=== PATIENT | male | born 1955 | race Caucasian/White ===

== ENCOUNTER 2017-06-18 10:00 | Inpatient (IN) | payer OTHER ==
[~2017-06-18] VITALS: Ht 177.8 cm; Wt 72.1 kg
--- NOTE | ~2017-06-18 | PROC ---
[address] [address] PROCEDURE REPORT Name: ALLISON FENTON Room: [address] IN .R.#: [id number] Admission: 06/18/17 Attend Phys: Sky Grajeda MD Discharge: Date of : 51 Report #: [id number] THIS REPORT FOR: //name// For GI report, please see the Provation report in Perceptive 7 content. By: [id number] Records Staff [facility] /PORFIRIO
[~2017-06-18 10:00] MED LIST: ALEVE220 MG PO; ASPIR 8181 MG PO; CINNAMON500 MG PO; GLUCOPHAGE1000 MG PO; HYDROCHLOROTHIA25 M2 PO; HYDROCODON-ACE1 EAC5 PO; HYZAAR 100-251 EACH PO; JANUVIA 50 MG T50 M1 PO; LEVOTHYROXIN0.025 MG PO; LIPITOR 20 MG T20 M1 PO; LOPRESSOR50 PO; LOSARTAN POTASS50 MG PO; MAGOX 400400 MG PO; METFORMIN HCL500 MG PO; PLAVIX 75 MG TA75 M1 PO; PROTONIX40 M1 PO; UNICOMPLEX M TA1 TA1 PO; [UNRECOGNIZED DRUG - OTHER] PO
[2017-06-18 10:05] VITALS: BP 102/63
[2017-06-18] MEDS ORDERED: VITAMIN D3400 UNIT PO (10:18)
[2017-06-18] MEDS ORDERED: HYDROCHLOROTH12.5 M1 PO (10:18)
[2017-06-18] MEDS ORDERED: ALEVE220 MG PO (10:18)
[2017-06-18] MEDS ORDERED: NITROGLYCERIN0.4 MG SUBLING (10:18)
[2017-06-18] MEDS ORDERED: GLYBURIDE 1.21.25 M1 PO (10:19)
[2017-06-18] MEDS ORDERED: TRULICITY0.75 MG/0. PO (10:19)
[2017-06-18] MEDS ORDERED: JARDIANCE10 MG PO (10:19)
[2017-06-18 10:42] LABS: ABSOLUTE BASOPHILS 0.1 thou/uL (0.0-0.2); ABSOLUTE EOSINOPHILS 0.1 thou/uL (0.0-0.7); ABSOLUTE LYMPHOCYTES 0.9 thou/uL (0.8-5.3); ABSOLUTE MONOCYTES 0.8 thou/uL (0.0-1.2); BASOPHILS 1.3 %; EOSINOPHILS 1.1 %; HEMATOCRIT 39.6 % (42.0-52.0); HEMOGLOBIN 13.3 gm/dL (14.0-18.0); LYMPHOCYTES 11.8 %; MCH 31.4 pg (26.0-34.0); MCHC 33.5 g/dL (28.0-37.0); MCV 93.8 fL (80.0-100.0); MONOCYTES 10.1 %; MPV 9.3 fl. (7.2-11.1); NUCLEATED RBCS 0 /100WBC; PLATELET COUNT* 324 thou/uL (150-400); POLYS 75.7 %; RBC 4.23 mil/uL (4.50-6.00); RDW-CV 15.1 % (10.5-14.5); WBC 7.9 thou/uL (4.0-11.0)
[2017-06-18 10:50] LABS: URINE BLOOD NEGATIVE (Negative); URINE CLARITY SL CLOUDY; URINE COLOR DARK YELLOW; URINE GLUCOSE-RANDOM 3+ (Negative); URINE KETONES 1+ (Negative); URINE LEUKOCYTES-REFLEX NEGATIVE (Negative); URINE NITRITE-REFLEX NEGATIVE (Negative); URINE PROTEIN NEGATIVE (Negative); URINE UROBILINOGEN 0.2 E.U./dl (0.2-1.0)
[2017-06-18 10:51] LABS: URINE BILIRUBIN 2+ (Negative)
[2017-06-18 10:51] LABS: APTT 23.5 Seconds (25.0-31.3); PROTIME 9.8 Seconds (9.20-11.50)
[2017-06-18 10:52] LABS: ICTOTEST (BILI CONFIRMATORY) Positive (Negative)
[2017-06-18 10:53] LABS: ANION GAP 8 mmol/L (7-16); BUN 26 mg/dL (7-18); CALCIUM 8.7 mg/dL (8.5-10.1); CHLORIDE 90 mmol/L (98-107); CO2 29 mmol/L (21-32); CREATININE 1.6 mg/dL (0.6-1.3); GLUCOSE 287 mg/dL (70-99); POTASSIUM 4.6 mmol/L (3.5-5.1); SODIUM 127 mmol/L (136-145)
[2017-06-18 11:05] LABS: ALBUMIN 2.9 g/dL (3.4-5.0); ALKALINE PHOSPHATASE 1841 U/L (46-116); LIPASE 315 U/L (73-393); SGOT 253 U/L (15-37); SGPT 289 U/L (30-65); TOTAL BILIRUBIN 3.4 mg/dL (<0.1-1.0); TOTAL PROTEIN 7.2 g/dL (6.4-8.2); TROPONIN-I LEVEL <0.06 ng/mL (<0.06)
[2017-06-18 13:39] LABS: DIRECT BILIRUBIN 2.8 mg/dL (<0.1-0.3); TOTAL BILIRUBIN 3.4 mg/dL (<0.1-1.0)
[2017-06-18 14:44] VITALS: BP 102/69
--- NOTE | 2017-06-18 15:37 | EKG ---
[place] [address] ELECTROCARDIOGRAM REPORT Name: ALLISON FENTON Room: [address] ADM IN [facility].#: [id number] Admission: 06/18/17 Attend Phys: Sky Grajeda MD Discharge: Date of : 51 Report #: [id number] THIS REPORT FOR: //name// [facility] ED Test Date: 2017-06-18 Test Time: 10:14:22 Pat Name: ALLISON FENTON Department: Room: [facility] Gender: Slip Cover Maker: Kassandra TRIVEDI : 1955 Requested By: Neha Graham Order Number: [id number] MD: Chapito Erickson Measurements Intervals [place] Rate: 73 P: 65 TX: 142 QRS: -34 QRSD: 124 T: 71 QT: 444 QTc: 490 Interpretive Statements Sinus rhythm incomplete RBBB low voltage Baseline wander in lead(s) V1 Compared to ECG 11/03/2016 09:40:00 no change Electronically Signed On 06-18-2017 15:36:59 CIRCULAR CLERK by Chapito Erickson [email or web address] <ELECTRONICALLY SIGNED> By: Chapito Erickson MD, FAC 06/18/17 1536 1014 1014 Chapito Erickson MD, [facility] /EPI
[2017-06-18 20:00] VITALS: BP 111/80
[2017-06-18 23:07] LABS: HEPATITIS B SURFACE AG Negative (Negative)
[2017-06-19 04:46] LABS: HEMATOCRIT 40.6 % (42.0-52.0); HEMOGLOBIN 13.8 gm/dL (14.0-18.0); MCH 31.7 pg (26.0-34.0); MCV 93.3 fL (80.0-100.0); MPV 10.2 fl. (7.2-11.1); RBC 4.35 mil/uL (4.50-6.00); RDW-CV 15.6 % (10.5-14.5); WBC 8.3 thou/uL (4.0-11.0)
[2017-06-19 05:07] LABS: ALBUMIN 2.8 g/dL (3.4-5.0); CALCIUM 8.4 mg/dL (8.5-10.1); CREATININE 1.1 mg/dL (0.6-1.3); MAGNESIUM 2.3 mg/dL (1.8-2.4); TOTAL BILIRUBIN 3.6 mg/dL (<0.1-1.0); TOTAL PROTEIN 6.8 g/dL (6.4-8.2)
[2017-06-19 07:45] VITALS: BP 100/64
[2017-06-19 16:00] VITALS: BP 114/77
[2017-06-19 23:31] VITALS: BP 103/67
[2017-06-20 03:52] LABS: HEMATOCRIT 38.8 % (42.0-52.0); HEMOGLOBIN 13.1 gm/dL (14.0-18.0); MCH 31.4 pg (26.0-34.0); MCHC 33.7 g/dL (28.0-37.0); MCV 93.3 fL (80.0-100.0); RBC 4.16 mil/uL (4.50-6.00); RDW-CV 15.3 % (10.5-14.5); WBC 7.5 thou/uL (4.0-11.0)
[2017-06-20 04:28] LABS: ALBUMIN 2.6 g/dL (3.4-5.0); CALCIUM 8.2 mg/dL (8.5-10.1); CREATININE 1.1 mg/dL (0.6-1.3); MAGNESIUM 2.1 mg/dL (1.8-2.4); POTASSIUM 4.7 mmol/L (3.5-5.1); TOTAL BILIRUBIN 4.2 mg/dL (<0.1-1.0); TOTAL PROTEIN 6.5 g/dL (6.4-8.2)
[2017-06-20 07:50] VITALS: BP 90/69
[2017-06-20 16:43] VITALS: BP 107/67
[2017-06-21 03:45] LABS: HEMATOCRIT 41.6 % (42.0-52.0); HEMOGLOBIN 13.9 gm/dL (14.0-18.0); MCH 31.3 pg (26.0-34.0); MCHC 33.4 g/dL (28.0-37.0); MCV 93.8 fL (80.0-100.0); MPV 9.8 fl. (7.2-11.1); RBC 4.44 mil/uL (4.50-6.00); WBC 7.8 thou/uL (4.0-11.0)
[2017-06-21 04:11] LABS: ALBUMIN 2.6 g/dL (3.4-5.0); CALCIUM 8.5 mg/dL (8.5-10.1); CREATININE 1.1 mg/dL (0.6-1.3); POTASSIUM 4.7 mmol/L (3.5-5.1); TOTAL BILIRUBIN 5.3 mg/dL (<0.1-1.0); TOTAL PROTEIN 6.9 g/dL (6.4-8.2)
[2017-06-21 08:30] VITALS: BP 111/59
[2017-06-21 16:00] VITALS: BP 108/73
[2017-06-21 19:40] VITALS: BP 117/70
[2017-06-22 04:54] LABS: ALBUMIN 2.6 g/dL (3.4-5.0); CALCIUM 8.5 mg/dL (8.5-10.1); CREATININE 1.1 mg/dL (0.6-1.3); MAGNESIUM 1.7 mg/dL (1.8-2.4); POTASSIUM 4.5 mmol/L (3.5-5.1); TOTAL BILIRUBIN 5.7 mg/dL (<0.1-1.0); TOTAL PROTEIN 6.7 g/dL (6.4-8.2)
[2017-06-22 04:56] LABS: HEMATOCRIT 39.1 % (42.0-52.0); HEMOGLOBIN 13.2 gm/dL (14.0-18.0); MCH 31.7 pg (26.0-34.0); MCHC 33.8 g/dL (28.0-37.0); MCV 93.8 fL (80.0-100.0); MPV 10.3 fl. (7.2-11.1); RBC 4.17 mil/uL (4.50-6.00); RDW-CV 15.4 % (10.5-14.5); WBC 6.6 thou/uL (4.0-11.0)
[2017-06-22 07:45] VITALS: BP 108/90
[2017-06-22] MEDS ORDERED: LACTULOSE20 GM/30 M PO (15:18)
[2017-06-22 15:34] VITALS: BP 108/90
[2017-06-22 16:00] VITALS: BP 109/68
[2017-06-22 20:45] VITALS: BP 93/66
[2017-06-23 04:24] LABS: HEMATOCRIT 37.9 % (42.0-52.0); HEMOGLOBIN 13.1 gm/dL (14.0-18.0); MCH 32.3 pg (26.0-34.0); MCHC 34.7 g/dL (28.0-37.0); RBC 4.07 mil/uL (4.50-6.00); RDW-CV 15.4 % (10.5-14.5); WBC 6.6 thou/uL (4.0-11.0)
[2017-06-23 04:32] LABS: INR 1.1; PROTIME 10.4 Seconds (9.20-11.50)
[2017-06-23 04:46] LABS: ALBUMIN 2.7 g/dL (3.4-5.0); CALCIUM 8.8 mg/dL (8.5-10.1); POTASSIUM 5.4 mmol/L (3.5-5.1); TOTAL BILIRUBIN 6.7 mg/dL (<0.1-1.0); TOTAL PROTEIN 6.8 g/dL (6.4-8.2)
[2017-06-23 07:40] VITALS: BP 88/59
[2017-06-23 12:10] LABS: HCV QUANT BY PCR HCV Not Detected IU/mL (())
[2017-06-23 14:45] VITALS: BP 92/61
[2017-06-24 05:17] LABS: HEMATOCRIT 36.2 % (42.0-52.0); HEMOGLOBIN 12.4 gm/dL (14.0-18.0); MCH 31.8 pg (26.0-34.0); MCHC 34.1 g/dL (28.0-37.0); MPV 10.5 fl. (7.2-11.1); NUCLEATED RBCS 0 /100WBC; PLATELET COUNT* 254 thou/uL (150-400); RBC 3.89 mil/uL (4.50-6.00); RDW-CV 15.5 % (10.5-14.5); WBC 8.5 thou/uL (4.0-11.0)
[2017-06-24 05:33] LABS: ALBUMIN 2.6 g/dL (3.4-5.0); CALCIUM 8.2 mg/dL (8.5-10.1); POTASSIUM 4.9 mmol/L (3.5-5.1); TOTAL BILIRUBIN 7.1 mg/dL (<0.1-1.0); TOTAL PROTEIN 6.3 g/dL (6.4-8.2)
[2017-06-24 05:49] LABS: ABSOLUTE LYMPHOCYTES 0.9 thou/uL (0.8-5.3); ABSOLUTE MONOCYTES 0.4 thou/uL (0.0-1.2); ABSOLUTE NEUTROPHILS 7.2 thou/uL (1.6-8.1); ANISOCYTOSIS 1+; PLATELET ESTIMATE ADEQUATE; POIKILOCYTOSIS 1+
[2017-06-24 16:00] VITALS: BP 98/59
[2017-06-24 19:55] VITALS: BP 92/56
[2017-06-25 03:44] LABS: HEMATOCRIT 34.8 % (42.0-52.0); HEMOGLOBIN 11.7 gm/dL (14.0-18.0); MCH 31.5 pg (26.0-34.0); MCHC 33.7 g/dL (28.0-37.0); MCV 93.5 fL (80.0-100.0); RBC 3.72 mil/uL (4.50-6.00); RDW-CV 15.6 % (10.5-14.5); WBC 11.4 thou/uL (4.0-11.0)
[2017-06-25 04:06] LABS: ALBUMIN 2.4 g/dL (3.4-5.0); CALCIUM 8.2 mg/dL (8.5-10.1); CREATININE 1.1 mg/dL (0.6-1.3); POTASSIUM 4.9 mmol/L (3.5-5.1); TOTAL BILIRUBIN 7.6 mg/dL (<0.1-1.0)
[2017-06-25 08:30] VITALS: BP 110/58
--- NOTE | 2017-06-25 15:00 | CNG ---
[address] [address] CYTO-NONGYN REPORT PROCEDURE Name: ELICEOALLISON D Room: [address] IN .R.#: [id number] Admission: 06/18/17 Date of : 51 Discharge: Report #: [id number] Path Case #: [id number] CYTOPATHOLOGY REPORT COLLECTION DATE: 06/23/2017 RECEIVED DATE: 06/24/2017 SUBMITTING PHYS: Dr. Genesis Nichols OTHER PHYS: Dr Jeffery Grajeda CLINICAL HISTORY: Elevated liver enzymes, acute viral hepatitis, unspecified severe protein calorie malnutrition SPECIMEN(S) RECEIVED: A.Brushing, Biliary duct common bile duct strictures B.Brushing, Biliary duct common bile duct strictures * * * * * * * * * * * * FINAL DIAGNOSIS: A. Brushing, biliary duct common bile duct strictures: - No malignant cells identified. - Few groups of benign-appearing ductal epithelial cells. (see comment) B. Brushing, biliary duct common bile duct strictures: - Few groups of atypical ductal epithelial cells in background of benign-appearing ductal epithelial cells. (see comment) COMMENT: Specimens A and B reviewed with Dr. Louis Rodriguez (cytopathologist) who agrees with the diagnoses. (GLORY:; 06/25/2017) PATHOLOGIST: Leonard Hassan M.D. REPORT ELECTRONICALLY SIGNED BY: Leonard Hassan M.D. DATE/TIME: 06/25/2017 14:58 * * * * * * * * * * * * GROSS PATHOLOGY: A. Brushing, Biliary duct common bile duct strictures: The specimen is labeled "Allison Fenton" and consists of a brush tip in formalin. One formalin fixed cell block was prepared. B. Brushing, Biliary duct common bile duct strictures: The specimen is labeled "Allison Fenton" and consists of a brush tip in formalin. One formalin fixed cell block was prepared. (mm 3.) PLASTICS PRODUCTION MACHINE OPERATOR(S): BRIJESH Treadwell(ASCP) INITIAL CPT CODE(S): A; 63403, 11551 B; 68204, [address] [address] CYTO-NONGYN REPORT PROCEDURE Name: ALLISON FENTON Room: [address] IN [facility].#: [id number] Admission: 06/18/17 Date of : 51 Discharge: Report #: [id number] Path Case #: [id number] Professional services performed by [facility] at [address] [address] Technical services performed by [facility] at [address] [place] [address]., [address], [place] [address]. [facility] [address] [place] [address], [address] [place] [address] PHONE: [phone] DIRECTOR: Morgan W. Denis, M.D. * * * END OF REPORT * * *
[2017-06-25 16:22] VITALS: BP 94/75
[2017-06-26 06:40] LABS: ALBUMIN 2.3 g/dL (3.4-5.0); CALCIUM 8.1 mg/dL (8.5-10.1); CREATININE 1.1 mg/dL (0.6-1.3); POTASSIUM 4.7 mmol/L (3.5-5.1); TOTAL BILIRUBIN 7.9 mg/dL (<0.1-1.0); TOTAL PROTEIN 5.8 g/dL (6.4-8.2)
[2017-06-26 08:00] VITALS: BP 114/71
[2017-06-26] MEDS ORDERED: LEVOTHYROXINE100 MC1 PO (15:38)
[2017-06-26] MEDS ORDERED: PHENERGAN 25 MG25 M1 PO (15:41)
[2017-06-26] MEDS ORDERED: ONDANSETRON HCL4 M2 PO (15:43)
[2017-06-26 15:45] VITALS: BP 108/90
[2017-06-28 09:07] LABS: ANA INTERPRETATION Negative (Negative)
[2017-06-28 13:07] LABS: ANTI-DNA SCREEN <1 IU/mL (0-9); ANTI-RNP <0.2 AI (0.0-0.9)
--- NOTE | 2017-06-30 14:09 | CON ---
[address] [address] CONSULTATION Name: ALLISON FENTON Room: [address]#: [id number] Admission: 06/18/17 Attend Phys: Sky Grajeda MD Discharge: 06/26/17 Date of : 51 Report #: [id number] THIS REPORT FOR: //name// CC: OLLIE Grajeda DATE OF SERVICE: 06/26/2017 REQUESTING PHYSICIAN: Tono Denise DO REASON FOR CONSULTATION: Pancreatic mass. HISTORY OF PRESENT ILLNESS: The patient is a 62-year-old gentleman who was in his usual state of health until 3 months ago when he started having complaints of abdominal bloating, pain in upper abdomen and radiated to his back, decreased appetite. He lost about 50 pounds over last 3 months. He recently developed severe constipation and decided to see a party plan salesperson. He went to see Dr. Alvarez. He was admitted to the hospital. He has a history of hepatitis 3 with antiviral treatment in the past. He is not a drinker. He is found to have jaundice in the hospital. He had a CT scan of abdomen done, which showed suspicious areas in the liver, possibly diffuse infiltration of hepatocellular cancer or cirrhosis. He clearly has cirrhosis. There was a possible portal vein thrombosis. There was some mass in the body of the pancreas. Oncology consult is requested. The patient says he is very uncomfortable in the hospital. He wants to go home. Biopsy has not been done. Abdominal ultrasound, which showed an obvious liver mass. PAST MEDICAL HISTORY: Significant for type 2 diabetes, history of hepatitis C, now with negative viral load. SOCIAL HISTORY: He lives alone. He has a son in [place]. He is planning to move eventually to [place] to stay with his son. He does not drink alcohol excessively, only once in a while beer. He smokes, but has not been smoking for more than a week, so he is trying to quit smoking. He works as a dedicated driver. FAMILY HISTORY: Noncontributory. REVIEW OF SYSTEMS: GENERAL: Positive for weakness and weight loss. HEENT: Negative. CARDIOVASCULAR: No chest pain or palpitation. RESPIRATORY: No shortness of breath. GASTROINTESTINAL: See above. GENITOURINARY: No dysuria. NEUROLOGIC: [place] [address] CONSULTATION Name: ALLISON FENTON Room: [address]#: [id number] Admission: 06/18/17 Attend Phys: Sky Grajeda MD Discharge: 06/26/17 Date of : 51 Report #: [id number] PSYCHIATRIC: Negative. SKIN: Does not have any itching. PHYSICAL EXAMINATION: GENERAL: Reveals chronically ill-appearing man, not in acute distress. VITAL SIGNS: Blood pressure 114/71, heart rate is 96, temperature 98.9, respirations 18. HEENT: Does not reveal thrush. There is icterus. HEART: Normal S1, S2. LUNGS: Clear. ABDOMEN: Distended. There is some shifting dullness, but no ascitic fluid waves appreciated. There is hepatomegaly with nodular surface of the liver in upper outer quadrant. LOWER EXTREMITIES: No edema. MENTAL STATUS: Alert, oriented x 3. LYMPHATIC: There is no supraclavicular or axial lymphadenopathy. LABORATORY DATA: White count 11.4, hemoglobin 11.7, platelets 219. INR 1.1. Sodium 128, potassium 4.5, creatinine 1.1. Total bilirubin 7.9, bilirubin has not been done since admission, alkaline phosphatase 1438, ALT 203, albumin 2.3. CA19-[address] of abdomen: See above. ASSESSMENT AND PLAN: Pancreatic mass with dramatically elevated CA19-9, this is highly suggestive of metastatic pancreatic cancer, biopsy is necessary. The patient does not want to stay in the hospital. He wants to have a workup done as an outpatient. Plan to refer him to GI Clinic for EUS and biopsy of pancreatic mass. I discussed differential diagnosis. I explained that most likely he has metastatic pancreatic cancer. I advised to proceed with workup as soon as possible. I advised him to move to [place] as soon as possible if he wants to be closer to family. It would be advisable to have diagnosis while in [facility] but if he is opposed, he can go to [place] and then get admitted to the hospital and get liver biopsy done. Most likely, he will not be able to have EUS and a pancreatic mass biopsy there. His pain, I gave him prescription for hydrocodone 10 mg to use 1-2 every 4-6 hours p.r.n. Plan to see him back in the office for a followup next week. [address] [address] CONSULTATION Name: ALLISON FENTON [address] [id number] Admission: 06/18/17 Attend Phys: Sky Grajeda MD Discharge: 06/26/17 Date of : 51 Report #: [id number] Thank you very much for allowing me to participate in care of this patient. <ELECTRONICALLY SIGNED> By: Luz Mcguire MD 06/30/17 1409 1245 [id number] Mcguire MD /nt
--- NOTE | 2017-07-01 14:50 | CON ---
[address] [address] CONSULTATION Name: ALLISON FENTON Room: [address] IN .#: [id number] Admission: 06/18/17 Attend Phys: Sky Grajeda MD Discharge: 06/26/17 Date of : 51 Report #: [id number] THIS REPORT FOR: //name// CC: OLLIE Grajeda DATE OF SERVICE: 06/19/2017 REASON FOR CONSULT: Abnormal liver enzymes. HISTORY OF PRESENT ILLNESS: This is a 62-year-old male with history of hepatitis C, which has been treated 2 years ago. The patient had negative viral load. He apparently went to the office yesterday and signed nurse practitioner, Josette. At that time, the patient was not feeling good and Josette asked her to come to the Emergency Room. Since Emergency Room visit, he had a CT of abdomen and pelvis, which showed evidence of ascites and diffuse steatosis. The liver enzymes were also elevated with alkaline phosphatase of 1800 and transaminases in 200-300 range. Bilirubin was 3.6. The patient denies any alcohol use and reports that he had initially contracted his hep C using IV drugs going back to 30 some years ago. He denies use of any drugs currently. The patient also admits for never having any endoscopic evaluation. PAST MEDICAL HISTORY: Significant for history of hepatitis C, status post hep C treatment with negative viral load for the past 2 years. Chronic back pain with back surgery, diabetes mellitus, coronary artery disease status post CABG in 2006, stent placement, and right knee surgery. He also has hypothyroidism, GERD and chronic pain. ALLERGIES: No known drug allergy. SOCIAL HISTORY: The patient has remote history of drug and alcohol use, but has not used drugs for many years and does not drink. FAMILY HISTORY: Noncontributory. PHYSICAL EXAMINATION: VITAL SIGNS: Reveals blood pressure of 100/64, respirations 20, pulse 77, temperature 97.4. LUNGS: Clear. CARDIOVASCULAR: Regular. ABDOMEN: Soft, tender to palpation in the epigastric and right upper quadrant. [place] [address] CONSULTATION Name: ALLISON FENTON Room: [address]#: [id number] Admission: 06/18/17 Attend Phys: Sky Grajeda MD Discharge: 06/26/17 Date of : 51 Report #: [id number] LABORATORY DATA: Revealed sodium of 129; potassium 5.0; BUN is 20; creatinine 1.1; glucose 130; AST 166, down from 253; ALT 240, down from 289 and alk phos is 1652, down from 1842. Total bilirubin is 3.6, ammonia less than 10. BNP is 431. WBC is 8.3 with hemoglobin of 13.8 and platelet of 312. IMAGING: As discussed above. ASSESSMENT AND PLAN: We will consider HIDA scan since we cannot get an MRCP. The patient has evidence of cholecystitis. Also, activation of hep C as hep C antibody is elevated. We will order hep C viral load. We will make further recommendation once the HIDA scan is complete. Surgery should be also consulted. <ELECTRONICALLY SIGNED> By: Genesis Nichols MD 07/01/17 1450 1218 1235Genesis Nichols MD /nt
== END 2017-06-26 16:30 | disposition home or self-care (01) | DRG 441 ==
LOC: M.ERS 10:00 → M.TBA-ER 12:13 → M.3W 12:13
PROVIDERS: Internal Medicine; Internal Medicine Gastroenterology; Nurse Practitioner Adult Health; Physician Assistant; Surgery; ADMIT Internal Medicine
PROC: 0F798DZ Dilation of Common Bile Duct with Intraluminal Device, Via Natural or Artificial Opening Endoscopic (ICD-10-PCS; principal; 2017-06-23)
DX: B17.9 Acute viral hepatitis, unspecified (principal); E43 Unspecified severe protein-calorie malnutrition; K76.6 Portal hypertension; I85.00 Esophageal varices without bleeding; R18.8 Other ascites; K80.00 Calculus of gallbladder with acute cholecystitis without obstruction; G89.29 Other chronic pain; G54.9 Nerve root and plexus disorder, unspecified; I25.10 Atherosclerotic heart disease of native coronary artery without angina pectoris; E03.9 Hypothyroidism, unspecified; K21.9 Gastro-esophageal reflux disease without esophagitis; Z60.2 Problems related to living alone; K86.9 Disease of pancreas, unspecified; F17.210 Nicotine dependence, cigarettes, uncomplicated; E11.65 Type 2 diabetes mellitus with hyperglycemia; E86.9 Volume depletion, unspecified; K72.90 Hepatic failure, unspecified without coma; R74.0 Nonspecific elevation of levels of transaminase and lactic acid dehydrogenase [LDH]; K76.0 Fatty (change of) liver, not elsewhere classified; K74.60 Unspecified cirrhosis of liver; K59.00 Constipation, unspecified; E80.6 Other disorders of bilirubin metabolism; I10 Essential (primary) hypertension; E78.5 Hyperlipidemia, unspecified; Z68.22 Body mass index [BMI] 22.0-22.9, adult; Z86.19 Personal history of other infectious and parasitic diseases; Z95.1 Presence of aortocoronary bypass graft; Z95.5 Presence of coronary angioplasty implant and graft; Z79.899 Other long term (current) drug therapy; Z79.82 Long term (current) use of aspirin